=== PATIENT | female | born 1935 | race Caucasian/White ===

== ENCOUNTER 2017-02-05 12:02 | Inpatient (IN) | payer MEDICARE, MEDICAID ==
[~2017-02-05 12:02] MED LIST: ACTOS30 M1 PO; ASPIR-LOW81 M1 PO; ASPIRIN EC81 MG PO; CLONIDINE HCL0.2 M1 PO; FOLIC ACID1 M1 PO; FUROSEMIDE40 M2 PO; GLUCOPHAGE500 M3 PO; IRON325 M2 PO; IRON325 M3 PO; ISOSORBIDE MONO30 M4 PO; LASIX20 M1 PO; LEVAQUIN500 M1 PO; LIPITOR40 M1 PO; METFORMIN HCL500 M2 PO; METOPROLOL SUC100 M1 PO; METOPROLOL SUCC50 M1 PO; NORVASC10 M2 PO; NORVASC5 M2 PO; PLAVIX75 M1 PO; POTASSIUM CHLO10 ME2 PO; PRESERVISION A1 EAC5 PO; PROTONIX40 M2 PO; RANEXA500 M1 PO; SIMVASTATIN20 M1 PO; TOPROL XL100 M1 PO; TRAZODONE HCL50 M1 PO; VALSARTAN320 MG PO; VITAMIN B-12100 MC1 PO; VITAMIN B122500 MCG PO; VITAMIN D3400 UNI4 PO; VITAMIN D3400 UNI5 PO; [UNRECOGNIZED DRUG - OTHER] PO
[2017-02-05] MEDS ORDERED: DEMADEX20 M1 PO (12:52)
[2017-02-05] MEDS ORDERED: NYSTOP60 GM TOP (12:54)
[2017-02-05 13:36] LABS: BASO % 0.3 % (0-2); EOS % 3.2 % (0-7); EOSINOPHIL ABSOLUTE COUNT 0.2 tho/cmm (0.0-0.7); HCT-HEMATOCRIT 28.8 % (34.0-49.0); HGB-HEMOGLOBIN 9.2 gm/dl (12.0-15.5); IMMATURE GRANULOCYTES ABSOLUTE 0.03 tho/cmm (0-0.03); IMMATURE GRANULOCYTES PERCENT 0.5 % (0-0.3); LYMPH % 13.1 % (20-45); LYMPH ABSOLUTE COUNT 0.8 tho/cmm (0.8-4.5); MCH (MEAN CORPUSCULAR HGB) 28.1 pg (28.0-32.0); MCHC MEAN CORPUSCULAR HGB CONC 31.9 % (32.0-36.0); MCV (MEAN CELL VOLUME) 88.1 fl (82.0-96.0); MEAN PLATELET VOLUME 8.6 cmc (9.4-12.4); MONO % 7.4 % (0-12); MONOCYTE ABSOLUTE COUNT 0.4 tho/cmm (0.0-1.2); NEUTROPHIL ABSOLUTE COUNT 4.5 tho/cmm (1.6-8.0); NEUTROPHIL-AUTOMATED 4.5 tho/cmm (1.6-8.0); NEUTROPHILS % 75.5 % (40-80); PLATELET COUNT 168 tho/cmm (150-450); RED BLOOD COUNT 3.27 mil/cmm (4.00-5.20); RED CELL DISTRIBUTION WIDTH 19.3 % (12.4-16.4)
[2017-02-05 13:54] LABS: ALKALINE PHOSPHATASE 67 U/L (33-138); ALT/SGPT 27 U/L (12-78); ANION GAP 10 mmol/L (0-20); AST/SGOT 21 U/L (10-40); BILIRUBIN,TOTAL 0.6 mg/dl (0-1.5); BLOOD UREA NITROGEN 19 mg/dl (6-24); CALCIUM 9.5 mg/dl (8.5-10.5); CARBON DIOXIDE-VENOUS 29 mmol/L (22-32); CHLORIDE 108 mmol/l (96-110); CHOLESTEROL 105 mg/dl (120-200); GLUCOSE 156 mg/dL (70-110); HDL CHOLESTEROL 60 mg/dl (40-60); LDL CHOLESTEROL 30 mg/dl (0-99); MAGNESIUM 2.2 mg/dl (1.8-2.6); POTASSIUM 4.2 mmol/L (3.7-5.1); SODIUM 143 mmol/L (135-145); TRIGLYCERIDES 79 mg/dl (<149); VLDL 16 mg/dl (0-30); eGFR VALUE FOR BLACK 55 mL/Min
[2017-02-05 14:04] LABS: CKMB <0.5 ng/ml (<3.6)
--- NOTE | 2017-02-05 21:05 | NUR ---
VIRTUAL CARE NOTE: PT. UP IN HER CHAIR, DOESN'T SPEAK [place] SHE STATES WAVES AND SAYS HELLO TO THIS NURSE. WILL CONTINUE TO MONITOR.
[2017-02-05 21:52] LABS: CKMB <0.5 ng/ml (<3.6)
[2017-02-06 06:00] LABS: ANION GAP 12 mmol/L (0-20); BLOOD UREA NITROGEN 23 mg/dl (6-24); CALCIUM 9.2 mg/dl (8.5-10.5); CARBON DIOXIDE-VENOUS 29 mmol/L (22-32); CHLORIDE 108 mmol/l (96-110); CREATININE 1.35 mg/dl (0.50-1.10); GLUCOSE 149 mg/dL (70-110); SODIUM 145 mmol/L (135-145); eGFR VALUE FOR BLACK 43 mL/Min
[2017-02-06 06:01] LABS: CKMB <0.5 ng/ml (<3.6)
[2017-02-07 05:27] LABS: ALB/GLOB RATIO 0.8 (0.8-2.0); ALKALINE PHOSPHATASE 70 U/L (33-138); ALT/SGPT 23 U/L (12-78); ANION GAP 13 mmol/L (0-20); AST/SGOT 14 U/L (10-40); BILIRUBIN,DIRECT 0.2 mg/dl (0.0-0.3); BILIRUBIN,INDIRECT 0.5 mg/dL (0.0-1.0); BILIRUBIN,TOTAL 0.7 mg/dl (0-1.5); BLOOD UREA NITROGEN 32 mg/dl (6-24); CALCIUM 9.4 mg/dl (8.5-10.5); CARBON DIOXIDE-VENOUS 31 mmol/L (22-32); CHLORIDE 99 mmol/l (96-110); CREATININE 1.67 mg/dl (0.50-1.10); GLUCOSE 209 mg/dL (70-110); POTASSIUM 3.4 mmol/L (3.7-5.1); SODIUM 140 mmol/L (135-145); eGFR VALUE FOR BLACK 33 mL/Min
[2017-02-07 15:07] LABS: ANION GAP 14 mmol/L (0-20); BLOOD UREA NITROGEN 37 mg/dl (6-24); CALCIUM 10.2 mg/dl (8.5-10.5); CARBON DIOXIDE-VENOUS 32 mmol/L (22-32); CHLORIDE 97 mmol/l (96-110); CREATININE 2.08 mg/dl (0.50-1.10); GLUCOSE 120 mg/dL (70-110); POTASSIUM 4.9 mmol/L (3.7-5.1); SODIUM 138 mmol/L (135-145); eGFR VALUE FOR BLACK 26 mL/Min
--- NOTE | 2017-02-07 21:38 | NUR ---
VN ROUNDING DEFERRED PATIENT DOES NOT SPEAK ROMANSH
--- NOTE | 2017-02-08 01:00 | NUR ---
VN NOTE-PRINTED CLINICAL PHARMACOLOGY PRINTOUT ON [employer] AND [facility] ON HEART FAILURE IN [place] FOR PATIENT. REQUESTED BEDSIDE TAKE TO PATIENT FOR LATER TODAY.
[2017-02-08 05:04] LABS: BLOOD UREA NITROGEN 43 mg/dl (6-24); CALCIUM 10.1 mg/dl (8.5-10.5); CARBON DIOXIDE-VENOUS 30 mmol/L (22-32); CHLORIDE 99 mmol/l (96-110); CREATININE 2.13 mg/dl (0.50-1.10); SODIUM 140 mmol/L (135-145); eGFR VALUE FOR BLACK 25 mL/Min
[2017-02-08 05:11] LABS: ANION GAP 15 mmol/L (0-20); GLUCOSE 186 mg/dL (70-110); POTASSIUM 3.7 mmol/L (3.7-5.1)
[2017-02-08 15:13] LABS: URINE BILIRUBIN NEGATIVE (NEG); URINE BLOOD NEGATIVE (NEG); URINE GLUCOSE (UA) NEGATIVE (NEG); URINE KETONE NEGATIVE (NEG); URINE LEUKOCYTE ESTERASE NEGATIVE (NEG); URINE NITRITE NEGATIVE (NEG); URINE PROTEIN NEGATIVE (NEG); URINE SPECIFIC GRAVITY 1.005 (1.003-1.030)
[2017-02-08 15:15] LABS: URINE APPEARANCE CLEAR; URINE COLOR YELLOW
--- NOTE | 2017-02-08 20:37 | NUR ---
VN ROUNDING DEFERRED PATIENT DOES NOT SPEAK [place] AND THERE IS NO FAMILY PRESENT IN THE ROOM
[2017-02-09 05:30] LABS: ANION GAP 15 mmol/L (0-20); BLOOD UREA NITROGEN 46 mg/dl (6-24); CALCIUM 9.4 mg/dl (8.5-10.5); CARBON DIOXIDE-VENOUS 25 mmol/L (22-32); CHLORIDE 103 mmol/l (96-110); CREATININE 1.84 mg/dl (0.50-1.10); GLUCOSE 221 mg/dL (70-110); SODIUM 139 mmol/L (135-145); eGFR VALUE FOR BLACK 30 mL/Min
[2017-02-09 05:34] LABS: POTASSIUM 4.2 mmol/L (3.7-5.1)
--- NOTE | 2017-02-09 19:15 | NUR ---
VIRTUAL CARE NOTE: ASSESSMENT DEFERRED. PT. SLEEPING.
[2017-02-10] MEDS ORDERED: ELIQUIS5 M1 PO (13:12)
--- NOTE | 2017-02-10 13:56 | NUR ---
VIRTUAL CARE NOTE: PT DRESSED SITTING ON CHAIR, DAUGHTER AT BEDSIDE SPEAKS BULGARIAN. HANSEL AND PT READY FOR DISCHARGE TEACHING, INFORMATION GIVEN TO DAUGHTER, ALL QUESTIONS WERE ANSWERED TO PT AND DAUGHTER. DISCOUNT COUPON PROVIDED TO PT FROM [employer]. DAUGHTER DENIES FURTHER QUESTIONS. INFORMED FLOOR NURSE DISCHARGE TEACHING DONE.
== END 2017-02-10 14:10 | DRG 291 ==
LOC: 5WD 12:02
PROVIDERS: Internal Medicine Cardiovascular Disease; Physician Assistant; ADMIT Internal Medicine Cardiovascular Disease
PROC: 05H633Z Insertion of Infusion Device into Left Subclavian Vein, Percutaneous Approach (ICD-10-PCS; principal; 2017-02-05)
PROC: 5A09357 Assistance with Respiratory Ventilation, Less than 24 Consecutive Hours, Continuous Positive Airway Pressure (ICD-10-PCS; 2017-02-06)
DX: I13.0 Hypertensive heart and chronic kidney disease with heart failure and stage 1 through stage 4 chronic kidney disease, or unspecified chronic kidney disease (principal); I50.33 Acute on chronic diastolic (congestive) heart failure; N17.9 Acute kidney failure, unspecified; I27.2 Other secondary pulmonary hypertension; E11.22 Type 2 diabetes mellitus with diabetic chronic kidney disease; I48.1 Persistent atrial fibrillation; Z79.01 Long term (current) use of anticoagulants; I25.10 Atherosclerotic heart disease of native coronary artery without angina pectoris; Z95.1 Presence of aortocoronary bypass graft; Z85.3 Personal history of malignant neoplasm of breast; Z85.118 Personal history of other malignant neoplasm of bronchus and lung; Z86.73 Personal history of transient ischemic attack (TIA), and cerebral infarction without residual deficits; E87.6 Hypokalemia; Z79.02 Long term (current) use of antithrombotics/antiplatelets; N18.3 Chronic kidney disease, stage 3 (moderate); R00.1 Bradycardia, unspecified; E78.2 Mixed hyperlipidemia
CPT/HCPCS: C1751; C8929; G0378; G0379; G8978-GP-CJ; G8979-GP-CI; G8987-GO-CJ; G8988-GO-CJ; J1815; J1940; J3475